=== PATIENT | female | born 2000 | race Caucasian/White ===

== ENCOUNTER 2023-08-06 19:48 | Emergency (ER) | payer OTHER ==
[~2023-08-06] VITALS: Ht 160 cm; Wt 94.8 kg
[2023-08-06 20:01] VITALS: BP 99/57; PULSE 110; RESP 20; TEMP 99.8
[2023-08-06 20:10] VITALS: O2SAT 97
[2023-08-06] MEDS: KETOROLAC 30 MG/ML VIAL IM ONE (21:15)
[2023-08-06] MEDS: DEXAMETHASONE 4 MG/ML VIAL PO ONE (21:40)
[2023-08-06 21:53] LABS: FLU A ANTIGEN negative (NEGATIVE); FLU B ANTIGEN negative (NEGATIVE)
== END 2023-08-06 21:42 | disposition home or self-care (01) ==
LOC: MED 19:48
DX: J02.8 Acute pharyngitis due to other specified organisms (principal); B97.89 Other viral agents as the cause of diseases classified elsewhere; Z20.822 Contact with and (suspected) exposure to COVID-19; H92.03 Otalgia, bilateral; J45.909 Unspecified asthma, uncomplicated; Z90.49 Acquired absence of other specified parts of digestive tract; Z88.5 Allergy status to narcotic agent
CPT/HCPCS: 87426; 87804; 96372; 99283; J1100; J1885